=== PATIENT | female | born 1985 | race Caucasian/White ===

== ENCOUNTER 2016-05-19 01:56 | Emergency (ER) | payer OTHER ==
[~2016-05-19 01:56] MED LIST: ALBUTEROL17 GM INH; AURALGAN EAR DR14 ML OT; BENZONATATE PO; CADUET 5 MG/201 TAB PO; CIPRO HC OTIC S10 ML OT; CIPRO PO; CLOBEX59 ML TOP; DOXEPIN PO; FLAGYL PO; LISINOPRIL; NORVASC; ORTHO-CYCLEN1 TAB PO; PERCOCET 5-3251 TAB PO; PROTONIX PO; TENEX1 M1; ZANTAC PO; ZESTORETIC 20/11 TAB; ZESTORETIC 20/11 TAB PO; ZOLOFT; ZYRTEC PO; [UNRECOGNIZED DRUG - OTHER]; [UNRECOGNIZED DRUG - OTHER]
== END 2016-05-19 02:14 | disposition home or self-care (01) ==
LOC: CED 01:56
DX: I10 Essential (primary) hypertension (principal); Z90.710 Acquired absence of both cervix and uterus
CPT/HCPCS: 99282